=== PATIENT | male | born 1950 ===

== ENCOUNTER 2017-11-26 09:14 | Day surgery (SDC) | payer OTHER ==
[~2017-11-26] VITALS: Ht 172.7 cm; Wt 68.0 kg
[~2017-11-26 09:14] MED LIST: HYDR1TAB94 PO; Pyridium100 MG PO
[2017-11-26] MEDS ORDERED: LISI5 (09:45)
== END 2017-11-26 11:46 | disposition home or self-care (01) ==
LOC: ORSCSDS 09:14
PROVIDERS: Internal Medicine Gastroenterology
PROC: 0DBH8ZX Excision of Cecum, Via Natural or Artificial Opening Endoscopic, Diagnostic (ICD-10-PCS; principal; 2017-11-26 10:30)
PROC: 0D757ZZ Dilation of Esophagus, Via Natural or Artificial Opening (ICD-10-PCS; principal; 2017-11-26 10:30)
PROC: 0DBM8ZX Excision of Descending Colon, Via Natural or Artificial Opening Endoscopic, Diagnostic (ICD-10-PCS; principal; 2017-11-26 10:30)
PROC: 0DB58ZX Excision of Esophagus, Via Natural or Artificial Opening Endoscopic, Diagnostic (ICD-10-PCS; principal; 2017-11-26 10:30)
DX: K21.9 Gastro-esophageal reflux disease without esophagitis (principal); R13.14 Dysphagia, pharyngoesophageal phase; Z86.010 Personal history of colon polyps; D12.4 Benign neoplasm of descending colon; D12.5 Benign neoplasm of sigmoid colon; K57.30 Diverticulosis of large intestine without perforation or abscess without bleeding; I10 Essential (primary) hypertension; Z79.899 Other long term (current) drug therapy
CPT/HCPCS: 88305; J7120

== ENCOUNTER 2020-11-15 06:18 | Day surgery (SDC) | payer OTHER ==
[~2020-11-15] VITALS: Ht 170.2 cm; Wt 66.0 kg
[~2020-11-15 06:18] MED LIST changes: +LISI5 PO
--- NOTE | 2020-11-15 06:25 | NUR ---
Ambulatory in Day Surgery. History, Chart, Medications and Allergies reviewed before start of procedure.Lungs clear T/O to Auscultation. Patient confirms NPO status and agrees with scheduled surgery. Pre-Op teaching done. Pt verbalizes understanding.
[2020-11-15] MEDS ORDERED: MYRBETRIQ50 MG PO (06:29)
--- NOTE | 2020-11-15 17:55 | NUR ---
SHIFT SUMMARY PATIENT CAME TO UNIT AT 1040 POST OP RIGHT TOTAL KNEE. MOVING WELL IN BED, SBA TO BATHROOM. PAIN CONTROLLED WITH RX. MINIMAL VOID OF 5O ML BY 1700. BLADDER SCAN REVEALED RETENTION OF 700 ML. STRAIGHT CATH PLACED AT 1740. PATIENT RESTING IN CHAIR EATING DINNER AT THIS TIME.
--- NOTE | 2020-11-15 19:03 | NUR ---
STRAIGHT CATH URINARY STRAIGHT CATH PERFORMED. 1100 MLS OUT. PT TOLERATED WELL.
--- NOTE | 2020-11-16 04:09 | NUR ---
SHIFT SUMMARY POD1 WITH RIGHT TKA WITH DR. GIRON. VSS. AFEBRILE. PT REPORTS MINIMAL PAIN. PAIN MANAGED WITH TORADOL, TYLENOL AND OXYCODONE. TOLERATING PO INTAKE. DENIES NAUSEA AND VOMITING. RIGHT KNEE WITH ANTONIO WRAP AND POLAR PACK IN PLACED. PT HX OF TURP PROCEDURE 4 WEEKS AGO. CONTINUE TO HAVE DIFFICULTY VOIDING. PT VOIDED ABOUT 500ML T/O SHIFT, POST VOID OF 500MLS IN BLADDER SCAN. STRAIGHT CATHETER PT DUE TO DISCOMFORT AND DIFFICULTY VOIDING. TOTAL OF 680ML URINE OUTPUT IN HIS STRAIGHT CATH. PT FELT RELIEF AFTER. PT DENIES NUMBNESS AND TINLGING. ABX ADMINISTERED. SALINE LOCKED. AMBULATES SEVERAL TIMES T/O SHIFT. BED IN LOW POSITION. CALL LIGHT WITHIN REACH.
[2020-11-16 04:11] LABS: BASOPHILS ABSOLUTE AUTO 0.03 K/mm3 (0.00-0.23); BASOPHILS PERCENT AUTO 0 % (0-2); EOSINOPHILS ABSOLUTE AUTO 0.08 K/mm3 (0.00-0.68); EOSINOPHILS PERCENT AUTO 1 % (0-6); Hematocrit 35.2 % (37.0-53.0); Hemoglobin 11.8 g/dL (13.5-17.5); IMMATURE GRAN ABSOLUTE AUTO 0.01 K/mm3 (0.00-0.10); IMMATURE GRAN PERCENT AUTO 0 % (0-1); LYMPHOCYTES ABSOLUTE AUTO 1.02 K/mm3 (0.84-5.20); LYMPHOCYTES PERCENT AUTO 11 % (21-46); MONOCYTES ABSOLUTE AUTO 1.23 K/mm3 (0.16-1.47); MONOCYTES PERCENT AUTO 13 % (4-13); Mean Corpuscular HGB 29.9 pg (26.0-34.0); Mean Corpuscular HGB Conc 33.5 g/dL (31.5-36.5); Mean Corpuscular Volume 89 fL (80-100); Mean Platelet Volume 9.7 fL (9.1-12.4); NEUTROPHILS ABSOLUTE AUTO 6.86 K/mm3 (1.96-9.15); NEUTROPHILS PERCENT AUTO 74 % (41-73); Platelet Count 240 K/mm3 (150-400); RDW Coefficient Variation 11.9 % (11.7-14.2); RDW Standard Deviation 38.8 fL (35.1-46.3); Red Blood Cell Count 3.95 M/mm3 (4.30-5.90); White Blood Cell Count 9.23 K/mm3 (4.00-11.30)
[2020-11-16 04:32] LABS: Anion Gap 7 mmol/L (6-16); Blood Urea Nitrogen 16 mg/dL (8-24); Bun/Creatinine Ratio 18.4 (12.0-20.0); CO2, Blood 28 mmol/L (21-32); Calcium, Blood 8.8 mg/dL (8.5-10.1); Chloride, Blood 106 mmol/L (98-108); Creatinine, Blood 0.87 mg/dL (0.60-1.20); Glomerular Filtration Rate >60 (60-); Glucose, Blood 122 mg/dL (70-99); Magnesium, Blood 2.2 mg/dL (1.6-2.4); Potassium, Blood 3.9 mmol/L (3.5-5.5); Sodium, Blood 141 mmol/L (136-145)
--- NOTE | 2020-11-16 07:53 | NUR ---
SPOKE WITH DR. GIRON REGARDING URINARY RETENTION. ORDERS RECIEVED FOR HOSPITALIST CONSULT AND ABX FOR DISCHARGE.
--- NOTE | 2020-11-16 09:32 | NUR ---
WRITTEN PRESCRIPTION FOR BACTRIM GIVEN TO PER PT REQUEST. WILL COIL WINDING SUPERVISOR BEFORE DISCHARGE.
--- NOTE | 2020-11-16 15:37 | NUR ---
ADMIT: 11/15/20 DISCHARGE: 11/16/20 DX: Total Knee Arthoplasty, unable to urinate CC: Benoit CALL: -Cheyanne @ [phone]: Home with spouseCAREGIVER: Cheyanne Adam, Spouse / Partner, DX: HTN, GERD, hiperlipidemia, see listDME: noneCCM: noneTE[facility]: noneSUMMARY: Admit: - Per chart review with Dr. Gonsalez, she stated that if pt is able to void, he will be able to go home. Pt is ready to go home. Dr. Gonsalez saw pt and ordered Flomax, which will be called into his pharmacy and will brain picker. Pt. stated that he has a f/u appt scheduled with surgeon's office. Discuss need for follow up with PCP to make sure that he is able to urinate and have bladder scan per Dr. Gonsalez -[facility]
[2020-11-16] MEDS ORDERED: ASPI81CH PO (16:03)
[2020-11-16] MEDS ORDERED: ACET500 PO (16:03)
[2020-11-16] MEDS ORDERED: DOCU100 PO (16:04)
[2020-11-16] MEDS ORDERED: MIRALAX17 GM PO (16:06)
[2020-11-16] MEDS ORDERED: ROXICODONE5 MG PO (16:06)
[2020-11-16] MEDS ORDERED: PROM25 PO (16:07)
[2020-11-16] MEDS ORDERED: SULTRIDS PO (16:08)
[2020-11-16] MEDS ORDERED: TAMS.4ER PO (16:09)
--- NOTE | 2020-11-16 17:28 | NUR ---
DISCHARGE PT LEFT AT VIA WHEELCHAIR. ALL BELONGINGS SENT WITH PATIENT. PRESCRIPTIONS PICKED UP BY PRIOR TO LEAVING. PT AMBULATING WELL TO THE RESROOM, VOIDING FREQUENTLY. EDUCATED ON NEW MEDICATION REGIMENT AND IMPORTANCE OF PAIN CONTROL. EXTRA DRESSINGS SENT WITH PATIENT. PT DECLINED ANY FURTHER QUESTIONS AT THIS TIME. IV REMOVED PRIOR TO DISCHARGE.
== END 2020-11-16 16:59 | disposition home or self-care (01) ==
LOC: ORSCMMR 06:18 → ORD 07:30 → ORSCMMR 07:30 → SURS 10:45 → ORSCMMR 11-16 16:59
PROVIDERS: Orthopaedic Surgery
PROC: 8E0YXBZ Computer Assisted Procedure of Lower Extremity (ICD-10-PCS; principal; 2020-11-15 07:30)
PROC: 0SRC0J9 Replacement of Right Knee Joint with Synthetic Substitute, Cemented, Open Approach (ICD-10-PCS; principal; 2020-11-15 07:30)
DX: M17.11 Unilateral primary osteoarthritis, right knee (principal); I10 Essential (primary) hypertension; E78.5 Hyperlipidemia, unspecified; Z79.899 Other long term (current) drug therapy
CPT/HCPCS: 36415; 73560-RT; 80048; 83735; 85025; 88300; 97110; 97116; 97162; 97530; A9270; C1713; C1776; J0171; J0690; J0735; J1100; J1885; J2250; J2370; J2405; J2704; J2795; J3010; J7120

== ENCOUNTER 2023-03-07 10:20 | Day surgery (SDC) | payer OTHER ==
[~2023-03-07] VITALS: Ht 172.7 cm; Wt 67.4 kg
[~2023-03-07 10:20] MED LIST changes: +ACET500 PO; +ALEVE220 MG PO; +ASPI81CH PO; +Aspir 8181 MG PO; +DOCU100 PO; +MIRALAX17 GM PO; +MYRBETRIQ50 MG PO; +OXYC5 PO; +PROM12.5S PO; +PROM25 PO; +ROXICODONE5 MG PO; +SULTRIDS PO; +TAMS.4ER PO; +VENL37.5ER PO
[2023-03-07 12:51] VITALS: BP 116/80
== END 2023-03-07 12:51 | disposition home or self-care (01) ==
LOC: ORSCSDS 10:20
PROVIDERS: Internal Medicine Gastroenterology
PROC: 0DBK8ZX Excision of Ascending Colon, Via Natural or Artificial Opening Endoscopic, Diagnostic (ICD-10-PCS; principal; 2023-03-07 11:30)
PROC: 0DBN8ZX Excision of Sigmoid Colon, Via Natural or Artificial Opening Endoscopic, Diagnostic (ICD-10-PCS; principal; 2023-03-07 11:30)
PROC: 0DBH8ZX Excision of Cecum, Via Natural or Artificial Opening Endoscopic, Diagnostic (ICD-10-PCS; principal; 2023-03-07 11:30)
PROC: 0DBL8ZX Excision of Transverse Colon, Via Natural or Artificial Opening Endoscopic, Diagnostic (ICD-10-PCS; principal; 2023-03-07 11:30)
DX: Z12.11 Encounter for screening for malignant neoplasm of colon (principal); Z86.010 Personal history of colon polyps; D12.5 Benign neoplasm of sigmoid colon; D12.0 Benign neoplasm of cecum; D12.2 Benign neoplasm of ascending colon; D12.3 Benign neoplasm of transverse colon; K57.30 Diverticulosis of large intestine without perforation or abscess without bleeding; Z79.899 Other long term (current) drug therapy
CPT/HCPCS: 88305; J2704; J7120

== ENCOUNTER 2024-10-12 12:21 | Day surgery (SDC) | payer OTHER ==
[2024-10-12] VITALS (10 sets, daily range): BP systolic 137–176; BP diastolic 79–103
[~2024-10-12] VITALS: Ht 170 cm; Wt 67.7 kg
[~2024-10-12 12:21] MED LIST changes: +Lisinopril2.5 MG PO
[2024-10-12] MEDS ORDERED: CeFAZolin Sodium 2,000 MG in NS 100 ML IV SCH (12:45)
[2024-10-12] MEDS ORDERED: Lactated Ringer's 1,000 ML IV SCH (12:45)
[2024-10-12] MEDS ORDERED: Bupivacaine 0.5% HCl 5 MG/ML 30MLVIAL ONE (14:18)
[2024-10-12] MEDS ORDERED: propofoL 20 ML IV ONE (14:27)
[2024-10-12] MEDS ORDERED: FentaNYL Citrate 50 MCG/ML 2 ML Injection ONE (14:28)
[2024-10-12] MEDS ORDERED: Rocuronium Bromide 10 MG/ML 5ML Injection IV ONE ×2 (14:28→15:16)
[2024-10-12] MEDS ORDERED: Dexamethasone Sod Phos 10 MG/ML 1ML VIAL ONE (14:46)
[2024-10-12] MEDS ORDERED: Phenylephrine HCl 100 MCG/ML-NS 10MLSYR (1MG/10ML) ONE (14:52)
[2024-10-12] MEDS ORDERED: Sugammadex Sodium 200 MG/2ML SDV (100 MG/ML) ONE (15:52)
[2024-10-12] MEDS ORDERED: Ketorolac Tromethamine 30mg Vial ONE (15:52)
[2024-10-12] MEDS ORDERED: HYDROcodone 5-APAP 325 TAB PO PRN (16:25)
--- NOTE | 2024-10-12 17:39 | NUR ---
Discharge instructions reviewed with patient. Patient verbalizes understanding. Copy given to patient to take home. Prescription already filled by . Dressing's X3 c/d/i. Pt to take nightime BP meds at home. Patient States Post-Procedure ride home has been arranged. Discharged via wheelchair to private car for ride home.
== END 2024-10-12 17:40 | disposition home or self-care (01) ==
LOC: ORSCMMR 12:21 → ORD 13:45 → ORSCMMR 13:45
PROVIDERS: Surgery
PROC: 0YU54JZ Supplement Right Inguinal Region with Synthetic Substitute, Percutaneous Endoscopic Approach (ICD-10-PCS; principal; 2024-10-12 13:45)
PROC: 8E0W4CZ Robotic Assisted Procedure of Trunk Region, Percutaneous Endoscopic Approach (ICD-10-PCS; principal; 2024-10-12 13:45)
DX: K40.91 Unilateral inguinal hernia, without obstruction or gangrene, recurrent (principal); I10 Essential (primary) hypertension; K21.9 Gastro-esophageal reflux disease without esophagitis; F41.9 Anxiety disorder, unspecified; F32.A Depression, unspecified; Z79.899 Other long term (current) drug therapy
CPT/HCPCS: A9270; C1781; J0690; J1100; J1885; J2371; J2704; J3010; J7120

== ENCOUNTER 2025-07-08 10:30 | Day surgery (SDC) | payer OTHER ==
[~2025-07-08] VITALS: Ht 172.7 cm; Wt 66.8 kg
[~2025-07-08 10:30] MED LIST changes: +Bupivacaine 0.5% W/EPI 1:200000 SDV 30 ML Vial ONE; +CeFAZolin Sodium 2,000 MG VIAL ONE
[2025-07-08] MEDS ORDERED: FentaNYL Citrate 50 MCG/ML 2 ML Injection ONE (11:51)
[2025-07-08] MEDS ORDERED: Midazolam HCl 1MG / ML 2ML Vial ONE (11:51)
--- NOTE | 2025-07-08 13:09 | NUR ---
07/08/25 1998 DANA KAYE PT DENIES PAIN AND NAUSEA. NO NEED FOR A WARM BLANKET HE IS COMFORTABLE.
[2025-07-08 13:49] VITALS: BP 139/86
[2025-07-08] MEDS ORDERED: Ondansetron HCl 2 MG / ML 2ML Vial IV ONE (18:59)
== END 2025-07-08 14:20 | disposition home or self-care (01) ==
LOC: ORSCSDS 10:30
PROVIDERS: Podiatrist Foot & Ankle Surgery
PROC: 0QSN04Z Reposition Right Metatarsal with Internal Fixation Device, Open Approach (ICD-10-PCS; principal; 2025-07-08 11:45)
DX: M21.621 Bunionette of right foot (principal); I10 Essential (primary) hypertension; Z79.899 Other long term (current) drug therapy
CPT/HCPCS: A6253; C1713; C1769; J0690; J2250; J2405; J2704; J3010; J7120